=== PATIENT | male | born 1990 | race Asian ===

== ENCOUNTER 2017-11-03 21:02 | Emergency (ER) | payer OTHER ==
[2017-11-03 21:09] VITALS: TEMP 97.7
--- NOTE | 2017-11-03 21:45 | EDPHY ---
H & P Smoking Status: Former smoker Time Seen by Provider: 11/03/17 21:13 HPI/ROS: CHIEF COMPLAINT: Dyspnea, dizziness HISTORY OF PRESENT ILLNESS: 27-year-old male presents to the emergency department by private vehicle feeling dizzy and short of breath. The patient is visiting from [facility]. He flew in yesterday. Since that time he has felt like he cannot get enough air in his lungs. He was feeling a bit anxious. He did not have associated pain with this. He denies calf pain falling. No reported trauma. He has never been to [place] before. Denies fevers or chills. Denies any other cold symptoms. No history of substance abuse. REVIEW OF SYSTEMS: Constitutional: No fever, no chills. Eyes: No double or blurry vision. ENT: No sore throat. Respiratory: No cough, no shortness of breath. Cardiac: No chest pain. Gastrointestinal: No abdominal pain, vomiting or diarrhea. Genitourinary: No dysuria. Musculoskeletal: No neck or back pain. Skin: No rashes. Neurological: No headache. (Skye Vancerina Haseeb) Past Medical/Surgical History: Negative (Aparna Vancea Haseeb) Social History: Single, visiting from [facility]. Originally from [place]. (Skye Vancerina Haseeb) Physical Exam: General Appearance: Alert, no distress. 107/83, heart rate 85, 100% on room air. Eyes: Pupils equal and round. Extraocular motions are all intact. ENT: Mouth: Mucous membranes moist. Respiratory: No wheezing, rhonchi, or rales, lungs are clear to auscultation. Cardiovascular: Regular rate and rhythm. Gastrointestinal: Abdomen is soft and nontender, no masses, no rebound or guarding, bowel sounds normal. Neurological: Alert and oriented x 3, cranial nerves II through XII grossly intact Skin: Warm and dry, no rashes. Musculoskeletal: Nontender to palpate along the cervical, thoracic or lumbar spine. Neck is supple. Extremities: Full range of motion and no peripheral edema. Psychiatric: Patient is oriented X 3, there is no agitation. (Aubree Vance) Constitutional: Initial Vital Signs Temperature (C) 36.5 C 11/03/17 21:05 Heart Rate 85 11/03/17 21:05 Respiratory Rate 18 11/03/17 21:05 Blood Pressure 107/83 H 11/03/17 21:05 O2 Sat (%) 100 11/03/17 21:05 O2 Delivery Mode Room Air Allergies/Adverse Reactions: No Known Allergies Allergy (Unverified 11/03/17 21:09) Home Medications: Medication Instructions Recorded Meclizine HCl [Meclizine HCl 25 mg 25 mg PO BID PRN #7 tab 11/03/17 (RX,OTC)] Medical Decision Making - Diagnostics Imaging: I viewed and interpreted images myself - Diagnostics EKG Interpretation: EKG interpreted by me shows normal sinus rhythm with normal interval and axis. QRS is normal there is no significant ST elevation or depression. No arrhythmia. The rate is 73 (Clif Hsu) ED Course/Re-evaluation: 27-year-old male presents to the emergency department feeling short of breath. He is anxious. Laboratory studies are pending. EKG is pending. I doubt this patient has a pulmonary embolism. Perc rule is negative. Patient had vertiginous symptoms especially moving his head around. He was given meclizine 25 mg p. O.. He was also given a prescription for the same. I doubt central vertigo. His symptoms are worse with movement of his head. Patient was encouraged to return to the emergency department if change in symptoms or felt worse in any way. (Aubree Vance) I did not see this patient while he was in the emergency department. However his care was discussed with the PA while the patient was in the department. I agree with treatment plan and management (Clif Hsu) Differential Diagnosis: Shortness of breath including but not limited to pulmonary infectious process, COPD, asthma, pulmonary embolus and congestive heart failure. Chest pain including but not limited to myocardial ischemia, pulmonary embolus, chest wall pain, pleural inflammation and pulmonary infectious causes. (Aubree Vance) - Data Points Laboratory Results: Laboratory Results 11/03/17 22:03 11/03/17 22:03 Medications Given: Discontinued Medications Meclizine HCl (Meclizine Hcl) 25 mg PO EDNOW ONE Stop: 11/03/17 22:27 Last Admin: 11/03/17 22:29 Dose: 25 mg Departure - Departure Disposition: Home, Routine, Self-Care Clinical Impression: Dizziness Condition: Good Instructions: Dizziness (ED) Additional Instructions: Drink plenty of water while you are here in [place]. Return if you develop chest pain, shortness of breath, or if you feel worse in any way. Meclizine as needed for symptoms of dizziness. Caution drowsiness. Referrals: Jaz Pascual MD [Medical Doctor] - 2-3 days, if not improved (Primary care provider control operator) Prescriptions: Meclizine HCl [Meclizine HCl 25 mg (RX,OTC)] 25 mg PO BID PRN #7 tab PRN Reason: P.r.n. Dizziness
--- NOTE | 2017-11-03 21:48 | CPEKG ---
Heart Rate: 73 RR Interval: 822 P-R Interval: 156 QRSD Interval: 78 QT Interval: 396 QTC Interval: 437 P [place]: 36 QRS [place]: 70 T Wave [place]: 34 EKG Severity - NORMAL ECG - EKG Impression: SINUS RHYTHM Electronically Signed By: Clif Hsu 03-Nov-2017 22:39:58
[2017-11-03 22:07] LABS: PLATELET COUNT 271 10^3/uL (150-400)
[2017-11-03] MEDS ORDERED: MECLIZINE HCL 25 MG TAB PO ONE (22:26)
[2017-11-03] MEDS ORDERED: ONDANSETRON 4 MG/2 ML VIAL ONE (22:27)
[2017-11-03 23:24] VITALS: BP 137/89; PULSE 72; RESP 16; O2SAT 98
== END 2017-11-03 23:27 | disposition home or self-care (01) ==
DX: R42 Dizziness and giddiness (principal); Z87.891 Personal history of nicotine dependence
CPT/HCPCS: J2405